=== PATIENT | female | born 1960 | race Hispanic/Latino ===

== ENCOUNTER → 2024-05-26 | Outpatient (REF) | payer MEDICARE | LOC: MAMMO 09:19 | PROVIDERS: ATTEND Internal Medicine | DX: Z12.31 Encounter for screening mammogram for malignant neoplasm of breast (principal) | CPT/HCPCS: 77067 ==

== ENCOUNTER → 2024-10-07 | Day surgery (SDC) | payer MEDICARE ==
[2024-09-28 11:26] LABS: BASOPHILS % 0.6 % (0.0-1.0); EOSINOPHILS % 2.1 % (0.0-6.0); LYMPHOCYTES % 22.3 % (18.0-39.1); MONOCYTES % 5.6 % (4.4-11.3); NEUTROPHILS % 69.2 % (38.7-80.0); RED CELL DISTRIBUTION WIDTH 13.7 % (11.7-14.4)
[2024-09-28 11:38] LABS: INR 1.47
[2024-09-28 11:42] LABS: EST GLOMERULAR FILTRATION RATE 37.0 ML/MIN (>=60)
[~2024-10-07] MED LIST: ASPIRIN EC81 MG PO; ATORVASTATIN CA20 MG PO; CARVEDILOL12.5 MG PO; ELIQUIS2.5 MG PO; HUMALOG MI100 UNIT/2 SQ; IMURAN50 MG PO; LACTATED RINGER'S 1,000 ML ONE; LEVOTHYROXINE88 MCG PO; NIFEDIPINE20 MG PO; PANTOPRAZOLE SO40 MG PO; PREDNISONE5 MG PO; PROGRAF1 MG PO; PROPOFOL IV EMULSION 10 MG/ML 20 ML VIAL ONE; SODIUM BICARBO650 MG PO; SODIUM CHLORIDE 0.9% 500ML 500 ML ONE; TRESIBA FL100 UNIT/1 SC; VITAMIN D350 MC1 PO
[2024-10-07 10:27] VITALS: TEMP 98
[2024-10-07 10:50] VITALS: BP 177/68; PULSE 56; RESP 18; O2SAT 100
== END | disposition home or self-care (01) ==
LOC: OR 08:41
PROVIDERS: ATTEND Internal Medicine Gastroenterology
DX: Z12.11 Encounter for screening for malignant neoplasm of colon (principal); D12.3 Benign neoplasm of transverse colon; K64.8 Other hemorrhoids; Z01.810 Encounter for preprocedural cardiovascular examination; Z01.812 Encounter for preprocedural laboratory examination; E11.9 Type 2 diabetes mellitus without complications; D64.9 Anemia, unspecified; M19.90 Unspecified osteoarthritis, unspecified site; E78.00 Pure hypercholesterolemia, unspecified; I10 Essential (primary) hypertension; Z90.49 Acquired absence of other specified parts of digestive tract; Z94.0 Kidney transplant status; Z88.0 Allergy status to penicillin; Z86.73 Personal history of transient ischemic attack (TIA), and cerebral infarction without residual deficits; Z79.82 Long term (current) use of aspirin; Z79.01 Long term (current) use of anticoagulants; Z79.4 Long term (current) use of insulin; Z79.890 Hormone replacement therapy; Z79.621 Long term (current) use of calcineurin inhibitor; Z79.52 Long term (current) use of systemic steroids
CPT/HCPCS: 36415 ×2; 45380; 80048; 82948; 85025; 85610; 85730; 88305; 93005; J2704; J7040; J7121 ×2; 45378